=== PATIENT | male | born 1970 | race Caucasian/White ===

== ENCOUNTER 2020-12-10 12:52 | Emergency (ER) | payer OTHER, SELFPAY ==
[2020-12-10 13:00] VITALS: BP 173/106; PULSE 87; RESP 20; TEMP 36.7; O2SAT 98
[2020-12-10] MEDS: DEXAMETHASONE 4 MG TABLET 12 MG PO (13:45)
[2020-12-10] MEDS: KETOROLAC (*BKC) 60 MG/2 ML VIAL IM (13:45)
[2020-12-10] MEDS: HYDROcodone/acetaminophen (*CRX) 5-325 MG TABLET 2 TAB PO (13:45)
[2020-12-10] MEDS: BACLOFEN 10 MG TABLET 20 MG PO (13:46)
--- NOTE | 2020-12-10 14:57 | ED.BACK ---
HPI - Back Pain/Injury General Chief Complaint: Back Pain/Injury Stated Complaint: back pain Time Seen by Provider: 12/10/20 13:10 Source: patient Mode of arrival: ambulatory Limitations: no limitations History of Present Illness HPI Narrative: Patient comes in with what he says is moderately severe back pain. He states this been going on for the few days, and a half and has been worse today. He has seen a chiropractor at least twice. Of this had helped him some. Back pain and then sharp and has been confined to his low back. He does not appear to have any radiation of this pain. He was a little bit better he states after going to the chiropractor on Saturday. Since then he has had little relief from the back pain. This pain appears to be located just in his lower LS-spine. He does not specifically remember doing anything that precipitated this. MD elicited complaint: back pain Pertinent past history: prior back pain Onset (ago): day(s) Timing: progressively worsening Severity: moderate Similar Symptoms Previously: Yes Quality: sharp Radiation: none Exacerbating factors: movement Relieving factors: immobilization Related Data Allergies Allergy/AdvReac Type Severity Reaction Status Date / Time wasp Allergy Anaphylaxis Uncoded 12/10/20 14:49 Review of Systems Constitutional: Constitutional: Reports no additional constitutional complaints Eyes: Eyes: Reports no additional eye complaints ENT: Reports system reviewed and no additional complaints, except as documented Cardiovascular: Cardiovascular: Reports no additional cardiovascular complaints Respiratory: Respiratory: Reports no additional respiratory complaints Gastrointestinal: Gastrointestinal: Reports no additional gastrointestinal complaints Genitourinary: Genitourinary: Reports no additional male genitourinary complaints Musculoskeletal: Musculoskeletal: Reports no additional musculoskeletal complaints Integumentary/Breasts: Skin/Breast: Reports system reviewed and no additional complaints, except as docu Neurologic: Reports system reviewed and no additional complaints, except as documented Psychiatric: Psychiatric: Reports no additional psychiatric complaints Endocrine: Endocrine: Reports no additional endocrine complaints Hematologic/Lymphatic: Hematologic/Lymphatic: Reports no additional hematologic/lymphatic complaints Allergic/Immunologic: Allergic/Immunologic: Reports no additional allergic/immunologic complaints [facility] Past Medical History Medical History (Updated 12/11/20 @ 00:01 by Krystina Nation) Back pain Hypertension Family History Family History (Updated 12/10/20 @ 23:58 by Luis Felipe Rob MD) Mother No problems noted. Social History Social History (Updated 12/11/20 @ 00:00 by Luis Felipe Rob MD) Additional living arrangements comments: with significant other Gender identity (if verbalized by the patient): Male Exam Const: General: no acute distress Orientation/consciousness: patient oriented x3 HENMT: Head: normal to inspection Ears: external ears normal General nose exam: Normal external nose present Face and sinus: normal facial exam Mouth: Yes Normal oral and palatal mucosa present Throat: posterior oropharynx normal Eyes: Conjunctivae: conjunctivae normal Neck: Neck: normal visual inspection Chest: Chest palpation & inspection: normal inspection of the chest Resp: Effort & Inspection: normal respiratory effort Auscultation: clear to auscultation bilaterally Cardio: Rate: regular rate Rhythm: regular rhythm GI: GI Palp: Yes Soft to palpation (nontender) Back/Spine/Pelvis: Other: no tenderness in LS spine to touch Neuro: General: patient oriented x3 and moves all extremities Extrem: General: normal to inspection Psych: Appearance: grossly normal Mental Status: mental status grossly normal Affect: normal affect Thought content: Yes Normal thought content present Course Course
[2020-12-10 15:08] VITALS: BP 147/93
== END 2020-12-10 15:10 | disposition home or self-care (01) ==
PROVIDERS: Emergency Provider Emergency Medicine
DX: M54.5 Low back pain (principal)
CPT/HCPCS: 96372; 99283; A9270; J1885; J8540

== ENCOUNTER 2020-12-13 13:11 | Outpatient (CLI) | payer OTHER, SELFPAY ==
--- NOTE | ~2020-12-13 | XR_ITS ---
EXAMINATION: XR lumbar spine 2-3V DATE: 12/13/2020 13:35 INDICATION: 6 weeks of back pain TECHNIQUE: Anteroposterior and lateral views of the lumbar spine, and cone-down lateral view of the l umbosacral junction were obtained. COMPARISON: None. FINDINGS: Alignment is normal. Vertebral body heights are normal. Moderate disc height loss at L5-S1. Mild to m oderate disc height loss at L4-L5. Mild disc height loss at L1-L2. Multilevel mild lumbar facet osteo arthritis. Mild osteoarthritis at the right sacroiliac joint. IMPRESSION: 1. Mild to moderate lower lumbar predominant spondylosis. Reviewed, dictated and finalized at location A.
[2020-12-13 13:25] LABS: Hematocrit 47.4 % (40.0-54.0); Mean Corpuscular HGB Conc 33.8 g/dL (32.0-36.0); Mean Corpuscular Hemoglobin 29.3 pg (27.0-31.0); Mean Corpuscular Volume 86.8 fL (78.0-102.0); Mean Platelet Volume 10.1 fl (8.7-11.0); Platelet Count Result 342 K/mm3 (150-420); Red Blood Count 5.46 M/mm3 (4.70-6.10); Red Cell Distribution Width 12.2 % (11.6-14.4); White Blood Count 17.2 K/mm3 (4.8-10.8)
[2020-12-13 14:15] LABS: Alanine Aminotransferase 34 U/L (16-63); Albumin Level 4.3 g/dL (3.4-5.0); Alkaline Phosphatase 57 U/L (46-116); Anion Gap 11 mmol/L (8-16); Aspartate Amino Transferase 14 U/L (15-37); Bilirubin,Total 0.5 mg/dL (0.00-1.00); Blood Urea Nitrogen 20 mg/dL (7-18); Calcium 9.4 mg/dL (8.5-10.1); Carbon Dioxide 25 mmol/L (21-32); Chloride 100 mmol/L (98-108); Cholesterol 291 mg/dL (0-200); Estimated Glomerular Filt Rate > 60; Glucose 102 mg/dL (70-99); HDL Direct 58 mg/dL (40-60); LDL Cholesterol Calculated 213 mg/dL (<130); Osmolality Calculated 284 mOsm/kg (285-295); Potassium 4.5 mmol/L (3.5-5.1); Prostate Specific Antigen 0.5 ng/mL (< OR = 4.0); Sodium 136 mmol/L (136-145); Total Protein 7.4 g/dL (6.4-8.2); Triglycerides 99 mg/dL (0-150)
== END 2020-12-13 13:12 | disposition home or self-care (01) ==
LOC: CHSLAB 13:14
PROVIDERS: PCP Family Medicine; Visit Provider Family Medicine
DX: Z00.00 Encounter for general adult medical examination without abnormal findings (principal); M54.9 Dorsalgia, unspecified
CPT/HCPCS: 36415; 72100; 80053; 80061; 84153; 85027; G0103

== ENCOUNTER 2020-12-15 07:52 | Outpatient (RCR) | payer OTHER, SELFPAY ==
--- NOTE | 2021-02-20 09:40 | PCPTNOTE ---
02/20/21 - mr. pearson has not been back to therapy in over a month due to feeling well. as of this date, he will be dc'd from skilled therapy services and all progress towards goals will be taken from her most recent evaluation/note.
== END 2020-12-30 10:23 | disposition home or self-care (01) ==
LOC: CHSPT 07:52
PROVIDERS: PCP Family Medicine; Visit Provider Family Medicine
DX: M54.9 Dorsalgia, unspecified (principal)
CPT/HCPCS: 97014; 97110; 97140; 97161; G0283